=== PATIENT | female | born 1945 | race Caucasian/White ===

== ENCOUNTER 2023-04-08 17:14 | Observation (INO) | payer OTHER, SELFPAY ==
[2023-04-08] VITALS (8 sets, daily range): BP systolic 134–188; BP diastolic 63–82; BMI 29.8
--- NOTE | 2023-04-08 11:25 | ED.GENMED ---
History of Present Illness
<Alhaji Blanco Jr., PA-C - Last Filed: 04/09/23 09:03>
General
Chief Complaint: Fall
Source: patient
Exam Limitations: none
Time Seen by Provider: 04/08/23 11:18
Nursing documentation reviewed up to this point in time: agreed with
Travel History
Have you had any contact with someone who has COVID-19?: No
Do you have any symptoms of coronavirus? Fever > 100 degrees, chills, cough, shortness of breath, sore throat, loss of taste or smell, muscle aches, or headache?: No
History of Present Illness
History of Present Illness:
77-year-old female past with history of NIDDM, hypertension hyperlipidemia, CAD presenting to the emergency department today with concerns of falling down 3 steps landing mainly on her right side her right upper arm and right ribs. Ongoing pain
since unable to move the right arm since. Did not lose consciousness did hit her upper forehead as well. Denies neck pain abdominal pain or lower extremity discomfort not on blood thinners.
Review of Systems
<Alhaji Blanco Jr., PA-C - Last Filed: 04/09/23 09:03>
Review of Systems
Allergies reviewed?: Yes
All Other Systems: ROS reviewed and negative except as documented in HPI and ROS
Phy Exam
<Alhaji Blanco Jr., PA-C - Last Filed: 04/09/23 09:03>
Physical Exam
Physical Exam:
GENERAL: Alert , in no apparent distress
EYE: pupils equal and reactive
NECK: Supple, no significant adenopathy.
ENT: o/p clr, mmm.
CARDIAC: Right lateral and posterior rib discomfort regular rate and rhythm .
LUNGS: Clear breath sounds bilaterally, no acute respiratory distress, no wheezes/rales/rhonchi
ABDOMEN: Soft, without focal tenderness, no r/g, no cvat
NEUROLOGICAL: Alert and oriented, no focal neuro deficits
SKIN: Warm and dry, skin intact.
MUSCULOSKELETAL: Discomfort throughout the right upper extremity at the proximal region as well as right shoulder on willing to move secondary to pain at the right shoulder able to move the elbow good sweep molder strength, well perfused.
PSYCH: Normal and appropriate interaction.
Superficial abrasion to the frontal scalp at midline just before the forehead no significant tenderness to the area
Course
<Alhaji Blanco Jr., PA-C - Last Filed: 04/09/23 09:03>
Orders/Labs/Results
Orders:
Orders
04/08/23 11:24
CT Head W/o Iv Contrast Urgent
Comment:
Reason For Exam: fall hit head
CR Humerus - Right Min 2 View* Urgent
Comment:
Reason For Exam: upper armp ain after fall
CR Ribs-right 3 Vw W/pa Chest* Urgent
Comment:
Reason For Exam: fall right rib pain
CR Shoulder, Trauma - Right Urgent
Comment:
Reason For Exam: shouler pain
04/08/23 12:49
HYDROmorphone [Dilaudid] 1 mg IV NOW STA
04/08/23 13:15
BMP [Basic Metabolic Panel] Urgent
CBC/With Diff [Complete Blood Count/With Diff] Urgent
04/08/23 13:28
Sling Right-Treatment ONCE
Incentive Spirometry [Rx Incentive Spirometry] [RESP] Urgent
Frequency: q1h while awake
04/08/23 13:41
CT Abd/Pel (IV only)-[facility] only Urgent
Comment:
Reason For Exam: trauma scan to right side
04/08/23 Dinner
1800 calorie (15 carb) Diabetic
At Your Request: Full Participation
04/08/23 15:21
HYDROmorphone [Dilaudid] 0.5 mg IV NOW STA
04/08/23 16:18
Ondansetron Injectable [Zofran] 4 mg .ROUTE .[facility]-MED ONE
04/08/23 16:38
Admit/Transfer Patient As Directed
Co-Sign Provider:
Level of Care: Observation services
Assign to:: Medical/Surgical
Physician / Group: Elizabeth
Transfer to: Medical/Surgical
Diagnosis: Intractable Pain / Right Humerus Fracture
Patient Condition: Fair
Reason for Hospitalization: Intractable Pain / Right Humerus Fracture
Expected length of stay greater than two midnights?: Yes
04/08/23 16:42
Code Status As Directed
Resuscitation Status: Full Code
04/08/23 16:48
Acetaminophen [Tylenol] 650 mg PO Q4HPRN PRN
Tramadol HCl [Ultram] 50 mg PO Q6HPRN PRN
04/08/23 17:07
Ondansetron Injectable [Zofran] 4 mg IV Q6HPRN PRN
04/08/23 17:08
HYDROmorphone [Dilaudid] 0.5 mg IV Q4HPRN PRN
04/08/23 17:15
Lidocaine [Lidocaine 4% Patch] 1 patch TOPICAL DAILY
04/08/23 18:00
0.45% Sodium Chloride 1000 ml [0.45%NaCl] 1,000 ml IV 75 mls/hr
04/08/23 18:21
Amlodipine [Norvasc] 2.5 mg PO QPM
Aspirin Low Dose EC [Aspir Low (Enteric Coated)] 81 mg PO QPM
Enoxaparin Sodium [Lovenox] 40 mg SC QPM
04/08/23 18:21
Activity As Directed
Activity Level: With Assistance
Vascular Checks As Directed
Location: Right Upper Extremity
Frequency: q4h
Vital Signs As Directed
Frequency: q4h
DX Deep Vein Thrombosis Video Routine
04/08/23 20:00
Docusate Sodium [Colace] 100 mg PO BID
METFORMIN HCl [Glucophage] 500 mg PO BID
04/08/23 22:00
Atorvastatin [Lipitor] 40 mg PO HS
04/09/23 04:16
Basic Metabolic Panel IN AM
Complete Blood Count/No Diff IN AM
Ferritin IN AM
Iron IN AM
Total Iron Binding IN AM
04/09/23 08:00
Calcium Carbonate [Oscal Frantz 500] 500 mg PO DAILY
Cholecalciferol (Vitamin D3) [VITAMIN D3 (cholecalciferol)] 25 mcg PO DAILY
Metoprolol Xl [Toprol Xl] 50 mg PO DAILY
Polyethylene Glycol Powder [Miralax] 17 grams PO DAILY
04/09/23 20:00
Remove Patch [Remove Lidocaine Patch] See Dose Instructions REMOVE DAILY@1999
Abnormal Lab Results
04/08/23
13:15
WBC 12.5 H 10^3/uL
(4.8-10.8)
Hgb 10.4 L g/dL
(12.0-16.0)
Hct 32.4 L %
(37.0-47.0)
MCV 77.0 L fL
(81.0-99.0)
MCH 24.7 L pg
(27.0-31.0)
MCHC 32.1 L g/dL
(33.0-37.0)
RDW 16.8 H %
(11.5-14.5)
MPV 10.5 H fL
(7.4-10.4)
Abs Immat Gran (auto) 0.1 H 10^3/uL
(0-0.05)
Absolute Neuts (auto) 10.0 H 10^3/uL
(1.4-6.5)
Absolute Monos (auto) 0.8 H 10^3/uL
(0.1-0.6)
Neutrophils % 79.9 H %
(42.2-75.2)
Lymphocytes % 12.7 L %
(20.5-51.1)
BUN 23 H mg/dl
(7-17)
Glucose 177 H mg/dl
(70-99)
04/08/23 13:15
04/08/23 13:15
Vital Signs
Initial and Last Documented VS:
Initial Vital Signs
Temp Pulse Resp BP Pulse Ox
98.0 F 66 17 161/82 98
04/08/23 11:06 04/08/23 11:06 04/08/23 11:06 04/08/23 11:06 04/08/23 11:06
Last Documented Vital Signs
Temp Pulse Resp BP Pulse Ox
98.2 F 66 17 129/62 99
04/09/23 07:08 04/09/23 07:08 04/09/23 07:08 04/09/23 07:08 04/09/23 07:08
<Mike aPul PA-C - Last Filed: 04/08/23 16:04>
Orders/Labs/Results
Orders:
Orders
04/08/23 11:24
CT Head W/o Iv Contrast Urgent
Comment:
Reason For Exam: fall hit head
CR Humerus - Right Min 2 View* Urgent
Comment:
Reason For Exam: upper armp ain after fall
CR Ribs-right 3 Vw W/pa Chest* Urgent
Comment:
Reason For Exam: fall right rib pain
CR Shoulder, Trauma - Right Urgent
Comment:
Reason For Exam: shouler pain
04/08/23 12:49
HYDROmorphone [Dilaudid] 1 mg IV NOW STA
04/08/23 13:15
BMP [Basic Metabolic Panel] Urgent
CBC/With Diff [Complete Blood Count/With Diff] Urgent
04/08/23 13:28
Sling Right-Treatment ONCE
Incentive Spirometry [Rx Incentive Spirometry] [RESP] Urgent
Frequency: q1h while awake
04/08/23 13:41
CT Abd/Pel (IV only)-[facility] only Urgent
Comment:
Reason For Exam: trauma scan to right side
04/08/23 Dinner
1800 calorie (15 carb) Diabetic
At Your Request: Full Participation
04/08/23 15:21
HYDROmorphone [Dilaudid] 0.5 mg IV NOW STA
04/08/23 16:18
Ondansetron Injectable [Zofran] 4 mg .ROUTE .[facility]
04/08/23 16:38
Admit/Transfer Patient As Directed
Co-Sign Provider:
Level of Care: Observation services
Assign to:: Medical/Surgical
Physician / Group: Elizabeth
Transfer to: Medical/Surgical
Diagnosis: Intractable Pain / Right Humerus Fracture
Patient Condition: Fair
Reason for Hospitalization: Intractable Pain / Right Humerus Fracture
Expected length of stay greater than two midnights?: Yes
04/08/23 16:42
Code Status As Directed
Resuscitation Status: Full Code
04/08/23 16:48
Acetaminophen [Tylenol] 650 mg PO Q4HPRN PRN
Tramadol HCl [Ultram] 50 mg PO Q6HPRN PRN
04/08/23 17:07
Ondansetron Injectable [Zofran] 4 mg IV Q6HPRN PRN
04/08/23 17:08
HYDROmorphone [Dilaudid] 0.5 mg IV Q4HPRN PRN
04/08/23 17:15
Lidocaine [Lidocaine 4% Patch] 1 patch TOPICAL DAILY
04/08/23 18:00
0.45% Sodium Chloride 1000 ml [0.45%NaCl] 1,000 ml IV 75 mls/hr
04/08/23 18:21
Amlodipine [Norvasc] 2.5 mg PO QPM
Aspirin Low Dose EC [Aspir Low (Enteric Coated)] 81 mg PO QPM
Enoxaparin Sodium [Lovenox] 40 mg SC QPM
04/08/23 18:21
Activity As Directed
Activity Level: With Assistance
Vascular Checks As Directed
Location: Right Upper Extremity
Frequency: q4h
Vital Signs As Directed
Frequency: q4h
DX Deep Vein Thrombosis Video Routine
04/08/23 20:00
Docusate Sodium [Colace] 100 mg PO BID
METFORMIN HCl [Glucophage] 500 mg PO BID
04/08/23 22:00
Atorvastatin [Lipitor] 40 mg PO HS
04/09/23 04:16
Basic Metabolic Panel IN AM
Complete Blood Count/No Diff IN AM
Ferritin IN AM
Iron IN AM
Total Iron Binding IN AM
04/09/23 08:00
Calcium Carbonate [Oscal Frantz 500] 500 mg PO DAILY
Cholecalciferol (Vitamin D3) [VITAMIN D3 (cholecalciferol)] 25 mcg PO DAILY
Metoprolol Xl [Toprol Xl] 50 mg PO DAILY
Polyethylene Glycol Powder [Miralax] 17 grams PO DAILY
04/09/23 20:00
Remove Patch [Remove Lidocaine Patch] See Dose Instructions REMOVE DAILY@1999
Abnormal Lab Results
04/08/23
13:15
WBC 12.5 H 10^3/uL
(4.8-10.8)
Hgb 10.4 L g/dL
(12.0-16.0)
Hct 32.4 L %
(37.0-47.0)
MCV 77.0 L fL
(81.0-99.0)
MCH 24.7 L pg
(27.0-31.0)
MCHC 32.1 L g/dL
(33.0-37.0)
RDW 16.8 H %
(11.5-14.5)
MPV 10.5 H fL
(7.4-10.4)
Abs Immat Gran (auto) 0.1 H 10^3/uL
(0-0.05)
Absolute Neuts (auto) 10.0 H 10^3/uL
(1.4-6.5)
Absolute Monos (auto) 0.8 H 10^3/uL
(0.1-0.6)
Neutrophils % 79.9 H %
(42.2-75.2)
Lymphocytes % 12.7 L %
(20.5-51.1)
BUN 23 H mg/dl
(7-17)
Glucose 177 H mg/dl
(70-99)
04/08/23 13:15
04/08/23 13:15
Vital Signs
Initial and Last Documented VS:
Initial Vital Signs
Temp Pulse Resp BP Pulse Ox
98.0 F 66 17 161/82 98
04/08/23 11:06 04/08/23 11:06 04/08/23 11:06 04/08/23 11:06 04/08/23 11:06
Last Documented Vital Signs
Temp Pulse Resp BP Pulse Ox
98.2 F 66 17 129/62 99
04/09/23 07:08 04/09/23 07:08 04/09/23 07:08 04/09/23 07:08 04/09/23 07:08
<Alhaji Blanco Jr., PA-C - Last Filed: 04/09/23 09:03>
MDM/Problems Addressed
MDM/Problems Addressed:
77-year-old female presenting to the emergency department after missing 3 steps falling directly on her right side mainly injuring her right upper arm and right upper ribs. Also think she may have hit her head but did not lose consciousness no
headache no nausea vomiting no neck pain. Head CT ordered as well as imaging of the right-sided ribs right-sided shoulder and arm. X-ray showing 3 rib fractures x-ray of the right arm showing fracture of the proximal humerus. Patient required
multiple doses of IV opioids plan to admit for pain control incentive spirometer. Patient was placed in a sling for the right-sided humerus fracture. Considering there is a lower rib fracture plan to get CT abdomen pelvis to evaluate for any
potential abdominal or underlying injury. No emergent findings on CT abdomen pelvis stable for admission here for monitoring.
<Alhaji Blanco Jr., PA-C - Last Filed: 04/09/23 09:03>
*Critical Care Note
Total Time (30-74mins, 75-104mins- exclusive of procedures): Not Applicable
<Mike Paul PA-C - Last Filed: 04/08/23 16:04>
Update Note
Update Note:
Assumed care of patient pending CT scan. CT scan shows no new traumatic finding. She has known seventh ninth and 10th rib fractures as well as a proximal humerus fracture. Will notify hospitalist for admission here
ED Attending Note
<Alhaji Blanco Jr., PA-C - Last Filed: 04/09/23 09:03>
-
Portions of this chart may have been created with voice recognition software.� Occasional wrong word or��sound alike� substitutions may have occurred due to the inherent limitations of voice recognition software.
Discharge Plan
Departure
Patient Disposition: Admit
Date of Disposition: 04/08/23
Time of Disposition: 16:03
Admit to doctor: Anthony
Presentation/result/management discussed w/ accepting MD/DO: Hospitalist
Patient with high blood pressure during this ER visit?: Yes
Condition: Good
Covid-19: Not Applicable
Discharge Problem:
Fracture, humerus, Multiple fractures of ribs, right side, initial encounter for closed fracture, Fall
Interventions
Interventions:
*Risk Screen - Suicide Last Done: 04/08/23 11:06
*General Assessment Last Done: 04/08/23 11:06
*Neglect/Abuse Screening Last Done: 04/08/23 11:06
ED- Fall Risk Assessment Last Done: 04/08/23 11:15
*ED COVID-19 Vaccine History Last Done: 04/08/23 11:06
*Nursing Disposition Last Done: 04/08/23 18:16
ED-Musculoskeletal Assessment Last Done: 04/08/23 11:15
ED- Neurological Assessment Last Done: 04/08/23 11:15
ED-Skin Assessment Last Done: 04/08/23 11:15
Discharge Date and Time
Discharge Date/Time: 04/08/23 18:17
[2023-04-08] MEDS: DILAUDID 1 MG IV (13:12)
[2023-04-08 13:27] LABS: % Basophils 0.2 % (0-2); % Eosinophils 0.2 % (0-6); % Immature Granulocytes 0.5 % (0-0.5); % Lymphocytes 12.7 % (20.5-51.1); % Monocytes 6.5 % (1.7-9.3); % Neutrophils 79.9 % (42.2-75.2); Absolute Immature Granulocytes 0.1 10^3/uL (0-0.05); Absolute Lymphocytes 1.6 10^3/uL (1.2-3.4); Absolute Monocytes 0.8 10^3/uL (0.1-0.6); Hematocrit 32.4 % (37.0-47.0); Hemoglobin 10.4 g/dL (12.0-16.0); Mean Corp Hgb Conc. 32.1 g/dL (33.0-37.0); Mean Corpuscular Hgb 24.7 pg (27.0-31.0); Mean Platelet Volume 10.5 fL (7.4-10.4); Nucleated Red Blood Cells % 0 %; Platelet Count 283 10^3/uL (130-400); Red Blood Cell Count 4.21 10^6/uL (4.20-5.40); Red Cell Dist. Width 16.8 % (11.5-14.5); White Blood Cell Count 12.5 10^3/uL (4.8-10.8)
[2023-04-08 13:40] LABS: Blood Urea Nitrogen 23 mg/dl (7-17); Calcium 9.3 mg/dl (8.4-10.2); Carbon Dioxide 27 mmol/L (22-30); Chloride 102 mmol/L (98-107); Estimated Creatinine Clearance 61 ml/min; Glucose 177 mg/dl (70-99); Potassium 4.5 mmol/L (3.5-5.1); Sodium 135 mmol/L (135-145); eGFR > 60.00
[2023-04-08] MEDS: DILAUDID 0.5 MG IV (15:47)
--- NOTE | 2023-04-08 16:49 | HPS.HSE ---
Family Physician
-
Family Physician: Rama Rendon
Chief Complaint
-
Right Rib/Back and R Shoulder Pain s/p Fall
History of Present Illness
77yo F with PMH CAD s/p GA (2020), HTN/HLD, DM2, Osteopenia, Past Right Elbow Fx s/p Repair and Right Sided Rib Fractures presents to ER with complaint Right Rib/Back and R Shoulder Pain s/p Fall. Pt does not recall event completely. at
bedside also aiding in HPI. She was walking downstairs holding a plant. Fell down approximately 3 stairs landing on right shoulder and striking forehead. Denies LOC however. Denies any concern for presyncope. She reports only having right back and
right shoulder pain 10/10 now improved to 4/10 s/p fentanyl en route and 1.5mg IV dilaudid in ER. Does not ambulate with walking aids. reports a fall around start where she fractured right orbit, right and elbow s/p repair. Denies
fever, chills, dizziness/LH, CP, palps, wheezing, cough, abd pain, dysuria, calf or leg pain. She does state she is resistant to starting new medications.
Monkey Trainer: Dr. Zelaya ([facility])
Medical History
Past Medical History
Past Medical History: Reports Other (CAD s/p GA (2020), HTN/HLD, DM2, Osteopenia, Past Right Elbow Fx s/p Repair and Right Sided Rib Fractures)
Past Surgical History: Reports Other (DESx2 (2020), Right Elbow Fracture Repair)
Social History
Tobacco: Non-smoker
Alcohol: None
Drug: None
Personal:
Family History
Family History: Other (GA - Brother x 2 and Father; PE - Brother)
Allergies / Home Medications
Allergies reflects when Allergies were last updated in [employer].
Home Medications with original date entered in [employer]
Allergy/Medication List:
Allergies
Allergy/AdvReac Type Severity Reaction Status Date / Time
No Known Allergies Allergy Unverified 04/08/23 13:05
Home Medications
acetaminophen 325 mg tablet (Tylenol) 650 mg PO Q4HPRN PRN MILD PAIN 04/08/23
amlodipine 2.5 mg tablet (Norvasc) 2.5 mg PO QPM 04/08/23
aspirin 81 mg tablet,delayed release 81 mg PO QPM 04/08/23
atorvastatin 40 mg tablet (Lipitor) 40 mg PO HS 04/08/23
calcium carbonate 500 mg calcium (1,250 mg) tablet 500 mg PO DAILY 04/08/23
cholecalciferol (vitamin D3) 25 mcg (1,000 unit) tablet (Vitamin D3) 25 mcg PO DAILY 04/08/23
coQ10 (ubiquinol) 100 mg capsule 100 mg PO DAILY 04/08/23
loperamide 2 mg tablet 2 mg PO BIDPRN PRN DIARRHEA 04/08/23
metformin 500 mg tablet 500 mg PO BID 04/08/23
metoprolol succinate 50 mg tablet,extended release 24 hr (Toprol XL) 50 mg PO DAILY 04/08/23
omega 3-wtc-tvc-fish oil 1,000 mg (120 mg-180 mg) capsule (Fish Oil) 1 cap PO DAILY 04/08/23
Review of Systems
-
History Source: Patient and Family
A 12 point ROS was completed and negative except as noted: Yes
Physical Exam
Vital Signs
Vital Signs
Temp Pulse Resp BP Pulse Ox
98.0 F 61 14 161/82 93
04/08/23 11:06 04/08/23 14:45 04/08/23 14:45 04/08/23 11:06 04/08/23 14:45
Physical Exam
General: Well Developed, Well Nourished and Conversant
HEENT: NormoCephalic (horizontal forehead abrasion), Moist mucous membranes, Good Dentition, PERRLA, Ears Appear Normal and Neck Nontender; No Neck Mass
Respiratory: Clear and Non Labored Respirations; No Wheezes, Rales or Rhonchi
Cardiac: S1/S2 and Regular Rhythm; No Peripheral Edema or Calf Tenderness
GI: Soft, Non Tender and Non Distended
Rectal: Deferred by Provider
Genito-urinary: No No costovertebral tender or [place]
Musculoskeletal: No Clubbing, No Cyanosis, No Edema and Other (+TTP right thoracic back. Right Proximal Humerus +TTP. +Limitation with right shoulder flexion/extension. Cable Reeler strength preserved. neurovascular intact. )
Skin: Warm and Dry
Neuro: Awake, Alert, Oriented and AO x 3
Psych: Calm
Laboratory Results
-
04/08/23 13:15
04/08/23 13:15
Data Reviewed
-
Diagnostic Radiology: Image Personally Visualized and interpreted
CT Scan: Image Personally Visualized and interpreted
Lab Data: Labs Reviewed by me
Impression/Plan
-
Mechanical Fall
Right Proximal Humerus Fracture
Right 7,9,10 Rib Fractures
Intractable Pain
- S/P Mechanical Fall down 3 steps landing on right shoulder/ribs/forehead
- CT brain (-). Pt has mildly poor recall. Monitor for post concussion syndrome. Prn Antiemetics and IVF
- XRs reviewed. Acute Proximal Right Humerus Fracture and Acute 7, 9, 10 right fib fx
- S/P 75mcg Fentanyl en route and 1.5m IV dilaudid since admission. Continue Prn Tylenol/Tramadol and 0.5mg IV dilaudid Q4h prn. Add Lido patch
- Sling ordered. Ortho consulted.
- Consult PT/OT
CAD s/p GA / HTN / HLD
- Chronic/stable. Follows with [facility]
- Continue home BB, amlodipine, aspirin, statin
Hyperglycemia / DM2
- BG 177 on admission. Reports last A1C ~7.2
- Continue home metformin. Add SSI/accuchecks with diabetic diet
- Pt was to start farxiga in 04/2022 but stated she is afraid of new meds and thus never started it. Advised pt close PCP follow up and educated her on its cardioprotective nature.
Microcytic Anemia
- Hgb 10.4 g/dL. MCV 77. Check iron indices and treat accordingly.
Hx Osteopenia
- Chronic. Continue home calcium carbonate and Vitamin D3. Reports recent dexa scan.
Code Status: Full
Diet: Diabetic
PPx: Lovenox
--- NOTE | 2023-04-08 18:33 | PTCARENOTE ---
Pt received from the ED via stretcher. Transport was w/o incident. Pt is AAOx3, VSS, pt is afebrile. Abrasion noted on left elbow and forehead. Pt instructed on plan of care. Pt verbalized understanding of plan of care. Call carreon is within reach.
[2023-04-08 18:44] LABS: Glucose - Point of Care 187 mg/dl (70-99)
--- NOTE | 2023-04-08 19:10 | W.PN.UPDATE ---
Update Note
Progress Note Update
Pt seen and chart reviewed
Would treat the R proximal humerus fracture nonsurgically at the present time
Recommend Sling immobilization
Please have F/U with me in about 10-14 days as outpt
thanks
GGMD
[2023-04-08 21:41] LABS: Glucose - Point of Care 185 mg/dl (70-99)
[2023-04-08] MEDS: 0.45%NACL 1000 IV (22:08)
[2023-04-08] MEDS: ASPIR LOW (ENTERIC COATED) 81 MG PO (22:11)
[2023-04-08] MEDS: LOVENOX 40 MG SC (22:12)
[2023-04-08] MEDS: GLUCOPHAGE 500 MG PO (22:13)
[2023-04-08] MEDS: LIPITOR 40 MG PO (22:13)
[2023-04-08] MEDS: COLACE 100 MG PO (22:13)
[2023-04-08] MEDS: NORVASC 2.5 MG PO (22:17)
[2023-04-08] MEDS: LIDOCAINE 4% PATCH 1 PATCH TOPICAL (22:35)
[2023-04-08] MEDS: TYLENOL 650 MG PO (22:43)
[2023-04-09] VITALS (8 sets, daily range): BP systolic 129–165; BP diastolic 62–77; PULSE 66–67; O2SAT 96–97
[2023-04-09 06:31] LABS: Hematocrit 32.2 % (37.0-47.0); Hemoglobin 10.3 g/dL (12.0-16.0); Mean Corpuscular Hgb 24.7 pg (27.0-31.0); Mean Corpuscular Volume 77.2 fL (81.0-99.0); Platelet Count 267 10^3/uL (130-400); Red Blood Cell Count 4.17 10^6/uL (4.20-5.40); Red Cell Dist. Width 16.9 % (11.5-14.5)
[2023-04-09 06:52] LABS: Glucose - Point of Care 128 mg/dl (70-99)
[2023-04-09 06:59] LABS: Blood Urea Nitrogen 21 mg/dl (7-17); Calcium 9.1 mg/dl (8.4-10.2); Carbon Dioxide 25 mmol/L (22-30); Chloride 102 mmol/L (98-107); Estimated Creatinine Clearance 69 ml/min; Glucose 96 mg/dl (70-99); Iron 40 ug/dl (37-170); Potassium 4.1 mmol/L (3.5-5.1); Sodium 135 mmol/L (135-145); eGFR > 60.00
[2023-04-09 07:08] LABS: Percent Saturation 9 % (20-50); Total Iron Binding Capacity 443 ug/dl (265-497)
[2023-04-09] MEDS: TYLENOL 650 MG PO ×4 (07:24→20:51)
[2023-04-09 07:33] LABS: Ferritin 7.5 ng/ml (11.1-264.0)
[2023-04-09 09:18] LABS: Glycohemoglobin (HgbA1c) 7.6 % (4.0-5.6)
[2023-04-09] MEDS: LIDOCAINE 4% PATCH 1 PATCH TOPICAL (09:43)
[2023-04-09] MEDS: COLACE 100 MG PO ×2 (09:44→20:52)
[2023-04-09] MEDS: TOPROL XL 50 MG PO (09:45)
[2023-04-09] MEDS: OSCAL CAL 500 500 MG PO (09:45)
[2023-04-09] MEDS: GLUCOPHAGE 500 MG PO ×2 (09:45→20:52)
[2023-04-09] MEDS: VITAMIN D3 (cholecalciferol) 25 MCG PO (09:45)
[2023-04-09] MEDS: ZOFRAN 4 MG IV (09:51)
--- NOTE | 2023-04-09 10:18 | CM ---
Addendum entered by Virgen Cole 04/09/23 12:51:
PT saw pt - recommending home health -
No preference for home care needs
TT sent to [facility] liaison for home care needs
Plan - when medically stable - home to previous setting with [facility] -
Original Note:
Chart reviewed. Spoke with pt at bedside
Pt lives with in a split level home
Does have powder room on FF, 7 steps to bedroom
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
Home DME - wheel chair,commode, shower chair
Past [facility]- unsure of agency
Denies SNF
PCP - Dr Rama Rendon
Pharm - [facility]
Discussed [facility]
PT - recs pending
Plan - anticipate home to previous setting - needs tbd
--- NOTE | 2023-04-09 10:38 | W.PN.HOSP.TC ---
Today's Communication/Plan
-
Pain control
PT/OT
monitor BP
Assessment / Plan
Assessment / Plan
Mechanical Fall
Right Proximal Humerus Fracture
Right 7,9,10 Rib Fractures
Intractable Pain
-�S/P Mechanical Fall down 3 steps landing on right shoulder/ribs/forehead
- CT brain (-). Pt has mildly poor recall. Monitor for post concussion syndrome. Prn Antiemetics and IVF
- XRs reviewed. Acute Proximal Right Humerus Fracture and Acute 7, 9, 10 right fib fx
- S/P 75mcg Fentanyl en route and 1.5m IV dilaudid since admission. Continue Tylenol standing/Tramadol and 0.5mg IV dilaudid Q4h prn. Add Lido patch
- Incentive spirometer ordered and encourage use
- Consult PT/OT
-Per Dr. Dent-Would treat the R proximal humerus fracture nonsurgically at the present time. Recommend Sling immobilization
Leukocytosis likely 2/2 stress
-Trending down .afebrile. monitor for now.
CAD s/p MT s/p 2 stents
- Chronic/stable. Follows with [facility]
- Continue home BB, amlodipine, aspirin, statin
Primary HTN
-Cont Norvasc and toprol
-BP 129/62
Hyperglycemia / DM2
- POC 128
- Continue home metformin. Add SSI/accuchecks with diabetic diet
- Pt was to start farxiga in 04/2022 but stated she is afraid of new meds and thus never started it. Advised pt close PCP follow up and educated her on its cardioprotective nature.
Microcytic Anemia
- Hgb 10.4 g/dL. MCV 77. IV venofer
Hx Osteopenia
- Chronic. Continue home calcium carbonate and Vitamin D3. Reports recent dexa scan.
Code Status:�Full
Diet: Diabetic
PPx:�Lovenox
PT/OT eval pending
Anticipated Discharge: Within 24 hours
Subjective/Interval History
-
Date of Service: April 09, 2023
States of soreness R lower back
RUE in sling
Objective Data
-
Labs:
Laboratory Results
04/09/23
04:16
WBC 11.0 H
Hgb 10.3 L
Hct 32.2 L
Plt Count 267
Sodium 135
Potassium 4.1
Chloride 102
Carbon Dioxide 25
BUN 21 H
Creatinine 0.8
Glucose 96
Calcium 9.1
Vital Signs:
Vital Signs
Temp Pulse Resp BP Pulse Ox
98.2 F 66 17 129/62 99
04/09/23 07:08 04/09/23 07:08 04/09/23 07:08 04/09/23 07:08 04/09/23 07:08
I&O
04/08/23 04/09/23 04/10/23
06:59 06:59 06:59
Intake Total 480 / 480
Balance 480 / 480
Physical Exam
-
General: Well Developed and No Apparent Distress
HEENT: Normocephalic, Atraumatic and Moist Mucous Membranes
Respiratory: Clear to Auscultation
Cardiac: Regular Rhythm and S1/S2; Negative Murmur, Rub or Gallop
GI: Soft, Nontender, Nondistended and Normal Bowel Sounds; Negative Organomegaly
Rectal: Deferred by Provider
Musculoskeletal: No Clubbing, No Cyanosis, No Edema and Other (RUE in sling )
Skin: Negative Rash
Neuro: Awake, Alert, Oriented, AO x 3, No Motor Deficits and Nonfocal/Grossly Intact
Psych: Calm
Data Reviewed
-
Total Time Spent with Patient (in minutes): 55
[2023-04-09] MEDS: FERRLECIT 110 MG IV (11:00)
[2023-04-09 11:35] LABS: Glucose - Point of Care 129 mg/dl (70-99)
[2023-04-09] MEDS: ULTRAM 50 MG PO (13:09)
--- NOTE | 2023-04-09 14:03 | VNURNOTE ---
Home Health Liaison met with patient and spouse to discuss [facility] nurse/therapy, visits, schedule, pet policy, and homebound status. Patient is agreeable and understands that visits at home will be 2-3 x per week to assess and teach medical
management. [facility] brochure provided with contact information. Patient is aware that [facility] will contact them for start of care in 1-2 days after discharge from . [facility] referral completed in [facility].
[2023-04-09 16:47] LABS: Glucose - Point of Care 144 mg/dl (70-99)
[2023-04-09] MEDS: NORVASC 2.5 MG PO (18:10)
[2023-04-09] MEDS: ASPIR LOW (ENTERIC COATED) 81 MG PO (18:11)
[2023-04-09] MEDS: LOVENOX 40 MG SC (18:11)
[2023-04-09] MEDS: LIPITOR 40 MG PO (20:51)
[2023-04-09 21:45] LABS: Glucose - Point of Care 168 mg/dl (70-99)
[2023-04-10] MEDS: TYLENOL 650 MG PO ×3 (02:23→13:54)
[2023-04-10 03:05] VITALS: BP 166/85
[2023-04-10 07:25] VITALS: BP 151/66
[2023-04-10 07:36] LABS: Glucose - Point of Care 119 mg/dl (70-99)
[2023-04-10] MEDS: GLUCOPHAGE 500 MG PO (08:16)
[2023-04-10] MEDS: OSCAL CAL 500 500 MG PO (08:16)
[2023-04-10] MEDS: COLACE 100 MG PO (08:16)
[2023-04-10] MEDS: VITAMIN D3 (cholecalciferol) 25 MCG PO (08:16)
[2023-04-10] MEDS: ULTRAM 50 MG PO ×2 (08:17→13:55)
[2023-04-10] MEDS: LIDOCAINE 4% PATCH 1 PATCH TOPICAL (08:17)
[2023-04-10] MEDS: TOPROL XL 50 MG PO (08:21)
[2023-04-10 11:31] LABS: Glucose - Point of Care 157 mg/dl (70-99)
[2023-04-10] MEDS: ZOFRAN 4 MG IV (12:05)
[2023-04-10 12:31] VITALS: BP 130/65; PULSE 65
--- NOTE | 2023-04-10 12:45 | W.PN.HOSP.TC ---
Today's Communication/Plan
-
pain control
IS
OP ortho f/u
Assessment / Plan
Assessment / Plan
General: Well Developed and No Apparent Distress
HEENT: Normocephalic, Atraumatic and Moist Mucous Membranes
Respiratory: Clear to Auscultation
Cardiac: Regular Rhythm and S1/S2; Negative Murmur, Rub or Gallop
GI: Soft, Nontender, Nondistended and Normal Bowel Sounds; Negative Organomegaly
Rectal: Deferred by Provider
Musculoskeletal: No Clubbing, No Cyanosis, No Edema and Other (RUE in sling )
Skin: Negative Rash
Neuro: Awake, Alert, Oriented, AO x 3, No Motor Deficits and Nonfocal/Grossly Intact
Psych: Calm
Mechanical Fall
Right Proximal Humerus Fracture
Right 7,9,10 Rib Fractures
Intractable Pain
-�S/P Mechanical Fall down 3 steps landing on right shoulder/ribs/forehead
- CT brain (-). Pt has mildly poor recall. Monitor for post concussion syndrome. Prn Antiemetics and IVF
- XRs reviewed. Acute Proximal Right Humerus Fracture and Acute 7, 9, 10 right fib fx
- S/P 75mcg Fentanyl en route and 1.5m IV dilaudid since admission. Continue Tylenol standing/Tramadol and 0.5mg IV dilaudid Q4h prn. Add Lido patch
- Incentive spirometer ordered and encourage use
- Consult PT/OT
- Per Dr. Dent-Would treat the R proximal humerus fracture nonsurgically at the present time. Recommend Sling immobilization
Leukocytosis likely 2/2 stress
-Trending down .afebrile. monitor for now.
CAD s/p DE s/p 2 stents
- Chronic/stable. Follows with [facility]
- Continue home BB, amlodipine, aspirin, statin
Primary HTN
-Cont Norvasc and toprol
-BP 144/68
Hyperglycemia / DM2
- POC 157 7.6
- Continue home metformin. Add SSI/accuchecks with diabetic diet
- Pt was to start farxiga in 04/2022 but stated she is afraid of new meds and thus never started it. Advised pt close PCP follow up and educated her on its cardioprotective nature.
Microcytic Anemia
- Hgb 10.4 g/dL. MCV 77. Po iron on dc.
Hx Osteopenia
- Chronic. Continue home calcium carbonate and Vitamin D3. Reports recent dexa scan.
Tiny 3 mm possible nodule versus scarring in the right middle lobe.
Per radiology guideline-No further imaging indicated if patient is low risk.
OP pcp f/u
Code Status:�Full
Diet: Diabetic
PPx:�Lovenox
PT/OT eval -home vn
Updated spouse over the phone in details. All questions were answered to his satisfaction.
More than 30 minutes spent in discharge including
Final examination of the patient
Summarizing hospital stay
Instructions for continuing care to all relevant caregivers
Preparation of discharge records, prescriptions, and referral forms
Total time spent (in minutes): 40
Anticipated Discharge: Today
Subjective/Interval History
-
Date of Service: April 10, 2023
States of severe rib cage pain
Objective Data
-
Vital Signs:
Vital Signs
Temp Pulse Resp BP Pulse Ox
98.1 F 67 14 144/68 95
04/10/23 07:25 04/10/23 08:21 04/10/23 07:25 04/10/23 08:21 04/10/23 07:25
I&O
04/09/23 04/10/23 04/11/23
06:59 06:59 06:59
Intake Total 480 / 480 1680 / 1680
Balance 480 / 480 1680 / 1680
--- NOTE | 2023-04-10 13:05 | W.DCSUMMARY ---
Discharge Summary
Discharge Data
Date of Admission: 04/08/23
Date of Discharge: 04/10/23
-
Pending Results: No
Hospital Course
77 yo F with past medical history of CAD status post stents, hypertension, hyperglycemia and diagnosis of diabetes noncompliant with meds, microcytic anemia, osteopenia who is presenting after mechanical fall. Patient was found to have a right
proximal humerus fracture and right 7 9 [address] head was negative for acute pathology. Patient with CT abdomen pelvis which was negative for any acute bleeding. Patient regards for humerus fracture was placed in sling. Patient
was eval by orthopedic recommended outpatient follow-up. Patient was started on pain control regimen. Patient also with diabetes recommend to follow-up with primary doctor. Patient was also found to have a 3 monitor pulmonary nodule recommend
outpatient follow-up. Patient was eval by physical occupational therapy to discharge home with pain control.
Discharge Plan
-
Patient Disposition: Home with Home Care
Discharge Diagnosis/Procedures: Mechanical Fall
Right Proximal Humerus Fracture
Right 7,9 and 10th Rib Fractures
Intractable Pain
Leukocytosis likely due to stress
Condition: Fair
Diet: As tolerated
Activity: With assistance and As tolerated
Driving Restrictions: No driving
Other Services: [facility]
Activity Restrictions/Additional Instructions:
Tiny 3 mm possible nodule versus scarring in the right middle lobe. f/u with Primary doctor.
Your A1c was 7.6. Recommend to follow with family doctor for diabetes management.
Referrals:
Bruce Dent MD [Active] - in one to two weeks (Call to make appointment)
Rama Rendon DO [Family Provider] - in less than 1 week
Prescriptions:
New
lidocaine 4 % Adhesive Patch,Medicated
1 patch topical DAILY 15 Days Qty: 15 0RF
Rx Instructions:
Apply R lower back
tramadol 50 mg tablet
50 mg PO Q8H PRN (Reason: severe pain) Qty: 15 0RF
ferrous sulfate 325 mg (65 mg iron) tablet
325 mg PO DAILY Qty: 30 0RF
Continued
metoprolol succinate [Toprol XL] 50 mg Tablet Extended Release 24 Hr
50 mg PO DAILY
atorvastatin [Lipitor] 40 mg Tablet
40 mg PO HS
metformin 500 mg Tablet
500 mg PO BID
loperamide 2 mg Tablet
2 mg PO BIDPRN PRN (Reason: DIARRHEA)
amlodipine [Norvasc] 2.5 mg Tablet
2.5 mg PO QPM
aspirin 81 mg Tablet,Delayed Release (Dr/Ec)
81 mg PO QPM
calcium carbonate 500 mg calcium (1,250 mg) Tablet
500 mg PO DAILY
cholecalciferol (vitamin D3) [Vitamin D3] 25 mcg (1,000 unit) Tablet
25 mcg PO DAILY
omega 8-ikz-ulc-fish oil [Fish Oil] 1,000 mg (120 mg-180 mg) Capsule
1 cap PO DAILY
coQ10 (ubiquinol) 100 mg Capsule
100 mg PO DAILY
Changed
acetaminophen [Tylenol] 325 mg Tablet
650 mg PO Q6H 7 Days Qty: 0 0RF
Discharge Orders:
Discharge Patient (As Directed); Ordered 04/10/23
Ordered By: Fahad Cruz
Discharge Date and Time
Discharge Date/Time: 04/10/23 14:35
--- NOTE | 2023-04-10 13:51 | CM ---
CM following re: discharge planning.
Reviewed pt's chart, met with pt and pt's at bedside.
Discharge order noted. Both pt and her are aware, expressed their agreement. No IMM needed, pt is OBS statues. Pt's stated he will transport pt home and he will need help to get the pt in the car. RN is aware.
[facility] referred to [facility].
Please fax discharge instructions to [facility] at [phone]
D/C plan: home with [facility] and family support. to transport.
No other discharge needs identified.
--- NOTE | 2023-04-10 14:30 | PTCARENOTE ---
Patient ready for discharge. Removed IV's. Went over discharge instructions with patient and patient's . Both comfortable with discharge. Answered questions that they had, emphasized follow up and appropriate medication-adherence.
Rolled patient out to 's car. Assisted into car.
--- NOTE | 2023-04-10 15:11 | W.[place]-PDMP ---
[place]-PD[place]
-
Checked the [place]- Prescription Drug Monitoring Program website, no red flags identified; safe to proceed with prescription.
== END 2023-04-10 14:35 | disposition home health service (06) ==
LOC: 2 SOUTH 17:14
PROVIDERS: Physician Assistant; ADMITTING PHYSICIAN Internal Medicine; ATTENDING PHYSICIAN Hospitalist; CONSULT PHYSICIAN Orthopaedic Surgery Hand Surgery; EMERGENCY PHYSICIAN Emergency Medicine; FAMILY PHYSICIAN Family Medicine Geriatric Medicine
DX: S42.211A Unspecified displaced fracture of surgical neck of right humerus, initial encounter for closed fracture (principal); S22.41XA Multiple fractures of ribs, right side, initial encounter for closed fracture; M79.601 Pain in right arm; D72.829 Elevated white blood cell count, unspecified; M19.011 Primary osteoarthritis, right shoulder; M85.89 Other specified disorders of bone density and structure, multiple sites; E11.65 Type 2 diabetes mellitus with hyperglycemia; R07.81 Pleurodynia; R91.1 Solitary pulmonary nodule; I10 Essential (primary) hypertension; D50.9 Iron deficiency anemia, unspecified; E78.5 Hyperlipidemia, unspecified; I25.10 Atherosclerotic heart disease of native coronary artery without angina pectoris; W10.8XXA Fall (on) (from) other stairs and steps, initial encounter; Y92.9 Unspecified place or not applicable; Y93.01 Activity, walking, marching and hiking; I25.2 Old myocardial infarction; Z79.82 Long term (current) use of aspirin; Z79.84 Long term (current) use of oral hypoglycemic drugs; Z91.148 Patient's other noncompliance with medication regimen for other reason; Z95.5 Presence of coronary angioplasty implant and graft
CPT/HCPCS: 70450; 71101; 73030; 73060; 74177; 80048; 82728; 82962; 83036; 83540; 83550; 85025; 85027; 96374; 96376; 97116; 97163; 97167; 97530; 97535; 99285; G0378; J2916; Q9967

== ENCOUNTER 2024-11-04 09:03 | Emergency (ER) | payer OTHER, SELFPAY ==
[2024-11-04 09:04] VITALS: BP 194/85
[2024-11-04 09:41] LABS: Urine Character Bloody (Clear)
--- NOTE | 2024-11-04 09:42 | ED.GENMED ---
History of Present Illness
General
Chief Complaint: Urinary Symptoms
Time Seen by Provider: 11/04/24 09:42
History of Present Illness
History of Present Illness:
FOCUSED PAST MEDICAL HISTORY
- The patient has history of high blood pressure, hyperlipidemia, CAD/HI, IBS, diabetes
REVIEW OF OLD RECORDS
- The patient was admitted here after a fall in March 2023 and was found to have a proximal right humerus fracture as well as right sided rib fractures
Note:
CHIEF COMPLAINT(S)
Blood in urine.
HISTORY OF PRESENT ILLNESS
The patient is a 79-year-old female who presented with a chief complaint of visible blood in her urine. The symptom started this morning and was described by the patient as having an 'orange' color. The patient denies severe pain typically
associated with kidney stones, but mentions mild burning and discomfort in the lower abdomen, particularly noticeable over the past couple of mornings. She notes that she has experienced hematuria once before while on Rivaroxaban (Zarelto), which
was discontinued due to bleeding concerns. The patient was initially prescribed Rivaroxaban approximately 10 years ago for a blood clot in the leg. She has not experienced any further blood clots since her medication was discontinued.
The patient currently takes a low-dose daily aspirin and reports no recent onset of fever. She expressed awareness that her current medication, Dapagliflozin (Farxiga), could cause bladder infections. She is also on Metformin, taking a total of
2000mg of the extended-release formulation once in the morning.
PAST MEDICAL AND SURIGICAL HISTORY
The patient has a history of blood clot in the leg, for which she was previously on Rivaroxaban.
MEDICATIONS
- Daily low-dose aspirin.
- Dapagliflozin (Farxiga).
- Metformin 2000mg, taken in the morning as extended release.
PHYSICAL EXAM
General: Alert, no acute distress.
Skin: Warm, dry.
Head: Normocephalic, atraumatic.
Neck: Supple, trachea midline.
Eyes, Ears, Nose, and Throat: Oral mucosa moist.
Cardiovascular: Normal peripheral perfusion, No edema. Regular rhythm, normal rate
Respiratory: Respirations are non-labored.
Gastrointestinal: Abdomen nondistended. There is minimal if any right lower quadrant tenderness
Back: Normal range of motion, Normal alignment. No CVA tenderness
Musculoskeletal: Normal range of motion, normal strength.
Neurological: Alert and oriented to person, place, time, and situation. No focal neurological deficit observed.
Psychiatric: Cooperative, appropriate mood & affect.
PLAN
- Await results from the urine analysis to evaluate for possible infection or other causes of hematuria.
- Consider antibiotic therapy if urinary tract infection is confirmed.
- Monitor and reassess symptoms as needed.
DIFFERENTIAL DIAGNOSIS
The Differential Diagnosis includes, in no particular order and is not limited to:
1. Urinary tract infection
2. Bladder infection
3. Drug-induced hematuria
4. Kidney stones
5. Bladder cancer
6. Benign prostatic hyperplasia (Though unlikely in this patient, relevant generally)
7. Glomerulonephritis
8. Interstitial nephritis
9. Trauma
10. Hemorrhagic cystitis
SUMMARY OF ENCOUNTER
The patient is a 79-year-old female who presented with hematuria, described as an 'orange' color in her urine. The patient has a history of coronary artery disease and stents and is currently taking low-dose aspirin, which increases the risk of
bleeding. Management included the initiation of antibiotics due to signs of urinary tract infection observed in the urinalysis. The patient demonstrated symptoms that could align with a condition known as hemorrhagic cystitis, presumed to be due to
an infection affecting the bladder wall.
DISPOSITION
Discharge.
ASSESSMENT
The patient with possible hemorrhagic cystitis due to a urinary tract infection was suspected. Consideration was given for stopping aspirin due to the increased bleeding risk, but it was decided to continue due to its protective effects on the
patients heart condition.
EMERGENCY TREATMENTS ADMINISTERED
A dose of Cephalexin was administered in the emergency department.
PLAN
The patient will be started on Cephalexin for the suspected urinary tract infection. A urine culture has been sent and will be evaluated for the sensitivities to confirm the appropriateness of the antibiotic. The patient will follow up with a
urologist, especially if symptoms persist. Consideration of a potential cystoscopy to rule out more significant abnormalities was discussed for future evaluation if necessary.
INDEPENDENT REVIEW OF LABS AND INTERPRETATION OF TESTS
My independent review of the urinalysis indicated signs consistent with an infection as well as blood present in the urine.
PATIENT EDUCATION AND COUNSELING
The patient was advised about the possibility of a urinary tract infection leading to hematuria and the potential influence of aspirin on bleeding. Information was provided about the use of Cephalexin, its appropriateness for the suspected
condition, and potential side effects were addressed, particularly compared to other antibiotics such as Levofloxacin, which were noted for side effects involving tendons.
FOLLOW-UP INSTRUCTIONS
The patient was advised to follow up with a urologist, especially if symptoms persist. Additionally, the patient was informed that they would be contacted if the urine culture results indicated a need for a change in antibiotics.
MEDICATION RECONCILIATION
Cephalexin was administered during the visit, and a prescription has been sent to the patients pharmacy for continuation. The patient is also currently on daily low-dose aspirin.
MEDICAL DECISION MAKING
-Complexity of Data Reviewed: Chronic conditions affecting care; coronary artery disease with stents. Differential diagnosis includes urinary tract infection, bladder infection, drug-induced hematuria, and hemorrhagic cystitis.
-Data:
Category 1
Review of patients current medications and relevant past medical history indicated increased bleeding risk due to aspirin use. Independent review of urinalysis indicating infection.
-Risk:
Consideration of Admission/Observation: Escalation of care including admission/observation was considered given the complexity and risk of the patients presenting complaint, exam findings, and their underlying comorbidities. However, ultimately, I
feel the patient is safe for outpatient management with close follow-up. Reasoning: Work-up reassuring, does not reveal any acute life/organ-threatening processes, patients symptoms well controlled upon reevaluation, reexamination is reassuring,
vitals are stable, patient agreeable with discharge, reliable for follow-up.
DIAGNOSIS
- Urinary tract infection (N39.0)
- Hematuria (R31.9)
- Coronary artery disease with stents (I25.10)
LABS
- Urinalysis shows red bloody urine with 4+ blood and 3+ leukocyte esterase
Phy Exam
Physical Exam
Physical Exam:
See HPI
Course
Orders/Labs/Results
Orders:
Orders
11/04/24 09:16
Urinalysis Reflex To Culture Urgent
Date Specimen was Collected: 11/04/24
Time Specimen was Collected: 09:07
Urine Microscopic Reflex Cult Urgent
Urine Culture Urgent
[place] Source: U
Specimen Description:
Date Specimen was Collected: 11/04/24
Time Specimen was Collected: 09:07
11/04/24 10:01
Cephalexin Monohydrate [Keflex] 500 mg PO NOW STA
Abnormal Lab Results
11/04/24
09:16
Ur Occult Blood Reflex 4+ A
(Negative)
Leukocyte Esterase Rfl 3+ A
(Negative)
Urine Glucose 4+ A
(Negative)
Urine Albumin (Reflex) 3+ A
(Neg - Trace)
Vital Signs
Initial and Last Documented VS:
Initial Vital Signs
Temp Pulse Resp BP Pulse Ox
36.6 C 74 16 194/85 98
11/04/24 09:04 11/04/24 09:04 11/04/24 09:04 11/04/24 09:04 11/04/24 09:04
Last Documented Vital Signs
Temp Pulse Resp BP Pulse Ox
36.6 C 74 16 194/85 98
11/04/24 09:04 11/04/24 09:04 11/04/24 09:04 11/04/24 09:04 11/04/24 09:43
*Pulse Oximetry
SaO2: 98
Oxygen Mode of Delivery: Room air
Patient hypoxic: no
*Critical Care Note
Total Time (30-74mins, 75-104mins- exclusive of procedures): Not Applicable
ED Attending Note
-
Portions of this chart may have been created with voice recognition software.� Occasional wrong word or��sound alike� substitutions may have occurred due to the inherent limitations of voice recognition software.
Discharge Plan
Departure
Patient Disposition: Home (Routine Discharge)
Date of Disposition: 11/04/24
Time of Disposition: 10:02
Patient with high blood pressure during this ER visit?: Yes
Discharge Problem:
Acute hemorrhagic cystitis
Instructions: Urinary Tract Infection, Adult (DC), Blood in the Urine (Hematuria), Adult (DC), BLOOD PRESSURE
Prescriptions:
New
cephalexin 500 mg tablet
500 mg PO TID Qty: 21 0RF
No Action
metoprolol succinate [Toprol XL] 50 mg Tablet Extended Release 24 Hr
50 mg PO DAILY
atorvastatin [Lipitor] 40 mg Tablet
40 mg PO HS
metformin 500 mg Tablet
500 mg PO BID
loperamide 2 mg Tablet
2 mg PO BIDPRN PRN (Reason: DIARRHEA)
amlodipine [Norvasc] 2.5 mg Tablet
2.5 mg PO QPM
aspirin 81 mg Tablet,Delayed Release (Dr/Ec)
81 mg PO QPM
calcium carbonate 500 mg calcium (1,250 mg) Tablet
500 mg PO DAILY
cholecalciferol (vitamin D3) [Vitamin D3] 25 mcg (1,000 unit) Tablet
25 mcg PO DAILY
omega 6-saq-ukk-fish oil [Fish Oil] 1,000 mg (120 mg-180 mg) Capsule
1 cap PO DAILY
coQ10 (ubiquinol) 100 mg Capsule
100 mg PO DAILY
lidocaine 4 % Adhesive Patch,Medicated
1 patch topical DAILY 15 Days Qty: 15 0RF
Rx Instructions:
Apply R lower back
acetaminophen [Tylenol] 325 mg Tablet
650 mg PO Q6H 7 Days Qty: 0 0RF
tramadol 50 mg tablet
50 mg PO Q8H PRN (Reason: severe pain) Qty: 15 0RF
ferrous sulfate 325 mg (65 mg iron) tablet
325 mg PO DAILY Qty: 30 0RF
Referrals:
Terell Soto Jr., MD [Active, Urology]
Activity Restrictions/Additional Instructions:
The urinalysis shows both blood as well as signs of infection (3+ leukocyte esterase). A urine culture is pending. I am sending a prescription for Keflex to your pharmacy. Return here if worse or other concerns. I have given you the contact
information for a local urologist that you could follow-up with (Dr. Soto).
Interventions
Interventions:
*Risk Screen - Suicide Last Done: 11/04/24 09:04
*Neglect/Abuse Screening Last Done: 11/04/24 09:04
Discharge Date and Time
Print Language: [id number]
[2024-11-04 10:00] VITALS: BP 169/87
[2024-11-04] MEDS: KEFLEX 500 MG PO (10:07)
[2024-11-04 10:16] LABS: Urine Red Blood Cell >100 /HPF (0-2); Urine White Cell 30-40 /HPF (0-5)
== END 2024-11-04 10:24 | disposition home or self-care (01) ==
LOC: EMR 09:03
PROVIDERS: Emergency Medicine; EMERGENCY PHYSICIAN Emergency Medicine; FAMILY PHYSICIAN Internal Medicine
DX: N30.01 Acute cystitis with hematuria (principal); E11.9 Type 2 diabetes mellitus without complications; E78.5 Hyperlipidemia, unspecified; I25.10 Atherosclerotic heart disease of native coronary artery without angina pectoris; Z95.5 Presence of coronary angioplasty implant and graft; Z79.82 Long term (current) use of aspirin
CPT/HCPCS: 99283; 81003; 81015; 87086